=== PATIENT | male | born 1990 | race Caucasian/White ===

== ENCOUNTER 2016-10-09 13:35 | Inpatient (IN) | payer OTHER ==
[~2016-10-09] VITALS: Ht 177.8 cm; Wt 88.3 kg
--- NOTE | ~2016-10-09 | INDIVTXPLN ---
"PATIENT: CHAPIN EVANS | | [facility] UNIT #: [id number] | [address] AGE/SEX: 26 M : 89 | [address] | [place] [phone] ADMIT/REG DATE: 10/09/16 | ROOM: [facility] LOC: ADTC | ADTC | Individualized Treatment Plan Date: 10/31/16 Problem Statement/Issue Identified: Client needs to identify relapse warning signs and develop a plan to deal with them as they arise. Goal: Client will learn how to identify relapse triggers and make a plan of how to avoid them. Objectives/Activities to achieve goal: 1. Client is to complete the Recovery Maintenance packet and process it with counselor. Due Date:11/07/16 Complete: Incomplete: Client signature Date Counselor signature Date Outcome/Measurement of Progress Towards Goal: Counselor's signature Date "
--- NOTE | ~2016-10-09 | INDIVTXPLN ---
"PATIENT: CHAPIN EVANS | | [facility] UNIT #: [id number] | [address] AGE/SEX: 26 M : 89 | [address] | [place] [address] ADMIT/REG DATE: 10/09/16 | ROOM: [facility] LOC: ADTC | ADTC | Individualized Treatment Plan Date: 10/10/16 Problem Statement/Issue Identified: Client continues to use alcohol &/or drugs despite ongoing negative consequences. Goal: Client will learn how to identify negative consequences of his addiction, attend AA/NA meetings and meet men in recovery. Objectives/Activities to achieve goal: 1. Client is to complete the How to Get Started packet, process it with counselor and selected pages in group. Due Date:10/16/16 Complete: Incomplete: 2. Client is to complete Step 1, process it with counselor and selected pages in group. Due Date:10/18/16 Complete: Incomplete: 3. Client is to attend AA/NA meetings, ask for and get at least 5 names and numbers of men in recovery and share that list with counselor. Due Date:Ongoing Complete: Incomplete: Client signature Date Counselor signature Date Outcome/Measurement of Progress Towards Goal: Counselor's signature Date "
--- NOTE | ~2016-10-09 | CLPRLASSUM ---
PATIENT: CHAPIN EVANS | | [facility] UNIT #: [id number] | [address] AGE/SEX: 26 M : 89 | [address] | [place] [phone] ADMIT/REG DATE: 10/09/16 | ROOM: [facility] LOC: ADTC | ADTC | Client Problem List/Assessment Summary Date: 10/10/16 Problems identified by the client: Client reported he went to his son's mom's house high and was arrested. Something in him told him it's time to get help on his own, not for the courts or anyone else, but so he can be a better person and father. Problems identified by significant others: Same Client's Strengths: Client identified his strengths as: He is intelligent, resilient, tenascious, and has intuition. Problem List: Code: T Client continues to use alcohol &/or drugs despite ongoing negative consequences. Code: T Client does not "reach-out to others for help" and instead resumes using alcohol &/or drugs. Code: T Client has learned to deny or stuff feelings; needs to learn to identify and process feelings with safe people to acquire the necessary skills to maintain terminologist sobriety. Code: T Client needs to identify relapse warning signs and develop a plan to deal with them as they arise. Code Ayala: T: to be addressed during course of treatment O: problem noted, expected to resolve itself with abstinence--specific tx plan not required R: problem noted, will be referred upon discharge PRIMARY COUNSELOR: LATRICE Mejia
--- NOTE | ~2016-10-09 | RESCARESUM ---
"PATIENT: CHAPIN EVANS | | [facility] UNIT #: [id number] | [address] AGE/SEX: 26 M : 89 | [address] | [place] [address] ADMIT/REG DATE: 10/09/16 | ROOM: [facility] LOC: ADTC | ADTC | Summary of Residential Care Primary Counselor: Mary POLLARD Date of Admission: 10/09/16 Date of Discharge: 11/08/16 Referral Source: 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 Discharge Diagnosis: Same Goals Achieved: Chapin was able to identify negative consequences of his addiction, and gain insight to the disease concept. He completed Step 1, and worked on learning to make changes and stop playing a con game. 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 Family Issues Addressed: The only issues addressed were those with he parents and their own addiction. He wrote and processed feelings letters to them, and we addressed the relationship between Chapin and his son's Mom. He also wrote feelings letters to his son and his Mom. Y Individual Therapy Y Group Therapy Y Educational Series on Substance Abuse N Parents/Significant Others Attended Family Program N Acute Medical Problems During the Course of Treatment N Transferred to Hospital During the Course of Treatment Y Accepting of Substance Abuse Problem N Non-accepting of Substance Abuse Problem N Required Psychological or Psychiatric Consultation During the Course of Treatment Completed AA Step # 1 During This Level of Care Significant Incidences During Treatment: None Reason For Discharge: Y Completed Residential [place] Goals and Ready For Next Level of Care PATIENT: CHAPIN EVANS | | [facility] UNIT #: [id number] | [address] AGE/SEX: 26 M : 89 | [address] | [place] [address] ADMIT/REG DATE: 10/09/16 | ROOM: [facility] LOC: ADTC | [facility] | Summary of Residential Care N Left Tx Against Medical Advice/Treatment Goals Not Complete N Completed Residential Tx Goals But Refusing Continuing Care Recommendations N Discharged Due to Noncompliance/Treatment Goals not Completed N Discharged Earlier Than Planned Due to: Continuing Care Plan/Recommendations: N Intensive Partial Care Y Sponsor N Partial Care Y AA Meetings/NA Meetings N Outpatient N Co-dependency Services N Therapeutic Community Y [address] [facility] [address] [facility] N Mental Health Therapy N Marriage Counseling N Other Specific Continuing Care Plan: It is recommended that Chapin go take care of his legal issue, then get into the [facility] as soon as possible. 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 PRIMARY COUNSELOR: LATRICE Mejia"
--- NOTE | ~2016-10-09 | TXPLANREV ---
"PATIENT: CHAPIN EVANS | | [facility] UNIT #: [id number] | [address] AGE/SEX: 26 M : 89 | [address] | [place] [phone] ADMIT/REG DATE: 10/09/16 | [facility] | Treatment Plan/Staffing Review Date: 10/17/16 Treatment plan was reviewed and determined appropriate as written: Yes Treatment plan was reviewed and the following changes/addition/deletions are necessary: Client is to continue working on treatment plan assignments. He is finishing up with Step 1 and will begin working on feelings letters. Discharge plans were reviewed and determined appropriate as previously documented: No Discharge plans were reviewed and determined to be as follows: Client has been accepted into the [facility], but he will need to come up with a deposit to keep his bed. He will also be recommended to do aftercare here in Outpatient treatment, as well as to get and call a sponsor on a regular basis and attend AA/NA meetings. Other pertinent issues discussed during this staffing review include: Client was confronted for going into the front office secretary's office and took candy from her candy dish. Staff Present: Corinne Reynoso PRIMARY COUNSELOR: LATRICE Mejia Client Signature Counselor Signature Date Time "
--- NOTE | ~2016-10-09 | TXPLANREV ---
"PATIENT: CHAPIN EVANS | | [facility] UNIT #: [id number] | [address] AGE/SEX: 26 M : 89 | [address] | [place] [phone] ADMIT/REG DATE: 10/09/16 | [facility] | Treatment Plan/Staffing Review Date: 10/24/16 Treatment plan was reviewed and determined appropriate as written: Yes Treatment plan was reviewed and the following changes/addition/deletions are necessary: Client is to continue working on treatment plan assignments. He is working on criminogenic packets. Discharge plans were reviewed and determined appropriate as previously documented: No Discharge plans were reviewed and determined to be as follows: [facility] We have put in applications and/or referrals to various places, including [facility], [facility] and [facility]. He will also be recommended to attend AA/NA meetings, as well as to get and call a sponsor on a regular basis. Other pertinent issues discussed during this staffing review include: None at this time. Staff Present: Corinne Reynoso PRIMARY COUNSELOR: LATRICE Mejia Client Signature Counselor Signature Date Time "
--- NOTE | ~2016-10-09 | TXPLANREV ---
"PATIENT: CHAPIN EVANS | | [facility] UNIT #: [id number] | [address] AGE/SEX: 26 M : 89 | [address] | [place] [phone] ADMIT/REG DATE: 10/09/16 | [facility] | Treatment Plan/Staffing Review Date: 11/07/16 Treatment plan was reviewed and determined appropriate as written: Yes Treatment plan was reviewed and the following changes/addition/deletions are necessary: Client is to continue working on treatment plan assignments. He is working on recovery maintenance. Discharge plans were reviewed and determined appropriate as previously documented: No Discharge plans were reviewed and determined to be as follows: Client has a bed at the [facility], but has to take care of an outstanding warrant before he can get in there. 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 Other pertinent issues discussed during this staffing review include: None at this time. Staff Present: Kalpana Reynoso PRIMARY COUNSELOR: LATRICE Mejia Client Signature Counselor Signature Date Time "
--- NOTE | ~2016-10-09 | INDIVTXPLN ---
"PATIENT: CHAPIN EVANS | | [facility] UNIT #: [id number] | [address] AGE/SEX: 26 M : 89 | [address] | [place] [phone] ADMIT/REG DATE: 10/09/16 | ROOM: [facility] LOC: ADTC | ADTC | Individualized Treatment Plan Date: 10/17/16 Problem Statement/Issue Identified: Client has learned to deny or stuff feelings; needs to learn to identify and process feelings in a clean/sober manner. Goal: Client will learn how to identify feelings and express them in a healthy, clean/sober manner. Objectives/Activities to achieve goal: 1. Client is to complete the Feelings packet, and process it with counselor. Due Date:10/24/16 Complete: Incomplete: 2. Client is to write feelings letters, process them with counselor and in family group, when able. Due Date:10/23/16 Complete: Incomplete: Client signature Date Counselor signature Date Outcome/Measurement of Progress Towards Goal: Counselor's signature Date "
--- NOTE | ~2016-10-09 | TXPLANREV ---
"PATIENT: CHAPIN EVANS | | [facility] UNIT #: [id number] | [address] AGE/SEX: 26 M : 89 | [address] | [place] [phone] ADMIT/REG DATE: 10/09/16 | [facility] | Treatment Plan/Staffing Review Date: 10/31/16 Treatment plan was reviewed and determined appropriate as written: Yes Treatment plan was reviewed and the following changes/addition/deletions are necessary: Client is to continue working on treatment plan assignments. He is finishing up with feelings letters and will begin working on relapse prevention. Discharge plans were reviewed and determined appropriate as previously documented: No Discharge plans were reviewed and determined to be as follows: Client has an outstanding warrant that we are working on getting lifted. If this is done, he has been accepted into the [facility]. 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 Other pertinent issues discussed during this staffing review include: None at this time. Staff Present: Corinne Reynoso PRIMARY COUNSELOR: Mary Drake Client Signature Counselor Signature Date Time "
--- NOTE | 2016-10-09 15:20 | NUR ---
ADMISSION NOTE Rights/Responsibilities: Copy given and explained to client. Signed and accepted by client. Client oriented to physical lay out of the ADTC unit, given Big Book and admission packet. A Dean was assigned. Chris Client is a 26yr old single male. Brought to tx by [facility] staff where he has been for the past 2 days. Lives in [place], [place]. DOC, Meth, last used 10/05/16, 1/2 gram daily. No allergies, Nurse has meds. No family. Was searched no contraband found. Initial paperwork given and guidelines gone over. Doctor has been notified.
--- NOTE | 2016-10-09 22:19 | NUR ---
Tech note : Client went to an onsite NA meeting. He was checked into his room, seen by gavin LEW and gave his first intro.
--- NOTE | 2016-10-10 04:13 | NUR ---
Bed note: Client was in bed with eyes closed and no distress at all bed checks.
--- NOTE | 2016-10-10 11:30 | NUR ---
GROUP 1.5 HRS. 1:9 Clients was oriented to purpose and rules. Discussion included discharge plans and the importance of aftercare plan. Peer processed HOW TO GET STARTED IN TREATMENT assignment. This client shared that he was previously in treatment in 2013.
--- NOTE | 2016-10-10 12:55 | NUR ---
Tech Note: Client participated in light stretching for morning exercise and went for an outdoor walk in the afternoon. Client stated that he is working on, "How to Get Started in Treatment."
--- NOTE | 2016-10-10 13:32 | NUR ---
Education One Hour: Client heard a presentation on Sexually Transmitted Disease.
--- NOTE | 2016-10-10 16:12 | NUR ---
Relapse Prevention Education, 1.0 hours, Client attended and actively participated in relapse prevention education which focused on a Relapse Prevention Quiz and discussion over the answers.
--- NOTE | 2016-10-10 16:16 | NUR ---
INITIAL SESSION 1 HR: Clt was oriented to tx plans, schedules and what to expect. He stated he was previously here, so knows what to expect. We discussed what brought him back, and he advised this time he's on his own, no drug court, not other legal problems, just him wanting to be able to see his child. AT this time, he cannot. Clt is to begin working on treatment plan assignments.
--- NOTE | 2016-10-10 20:10 | NUR ---
educatio note: 1 hour lecture by counselor on" what valdovinos are you willing to pay"
--- NOTE | 2016-10-10 22:24 | NUR ---
Tech note: Client attended the Alumni meeting, participated in guided meditation and attended an onsite AA meeting. SE; Meeting with counselor
--- NOTE | 2016-10-11 04:54 | NUR ---
Bed note: Client was in bed with eyes closed and motionless at all bed checks.
--- NOTE | 2016-10-11 09:02 | HP ---
ADMIT: 10/09/2016 RM/LOC: [facility] MR#: [id number] [facility] [address] [place], [place] [address] CHAPIN [place]ANS [address] [place] [address] History and Physical SEX: M AGE: 26 : 1990 DATE OF SERVICE: This is for his admission to the residential care program with [facility]. CHIEF COMPLAINT: Drug and alcohol problem with recent relapse on meth and alcohol. CLINICAL HISTORY: The patient is a 26-year-old, white male from [place], [place], admitted to the residential care program at the [facility] after having spent the last 3 days at [facility] for detox. The patient was admitted to [facility] on 10/07/2016. He went there voluntarily on his own after he got arrested for trespassing and released from skilled nursing. He had went to his son's mother's home and was high and somewhat agitated. She called the police because she had a protection order, and he was arrested for trespassing. As soon as he was released from skilled nursing, he decided it was time to come back to treatment and tried to get himself clean and sober so that he can move on with his life. He notes he has gone through treatment on one previous occasions. Previously, he was admitted to the residential treatment program here at the [facility] in January of 2014 being in treatment from 02/04/2014 through 03/03/2014. After he completed treatment at that time, he was sober for about 6 months while living at a residential house. He then relapsed while he was at the residential house, relapsing on methamphetamine and alcohol. He was then kicked out of the residential house and continued to use. Has been using essentially on a daily basis except when he is confined to skilled nursing or skilled nursing. The patient notes that he has been in skilled nursing on 2 occasions, spent a total of 16 months in 2014 and 2015. This occurred after he got out of the residential house and was using again. He ended up being charged with several felonies and ended up going to skilled nursing. He got out on probation, but then had further legal charges and his probation was revoked. He has been out of skilled nursing since November of 2015 and for the past 11 months, he has been using on a regular basis. He has noted that his drug of choice is methamphetamine. He first started using meth at around age 21. He has been using essentially on a daily basis either smoking it or shooting it IV. IV is his preferred route of administration. Typically, he has been doing a half to 1 g a day on a regular basis. His second drug of choice is currently alcohol, although that he notes when he is using meth, he has no desire to drink or use pot. Prior to starting meth at age 21, he had been a daily drinker, drinking heavily. He had started drinking at around age 12 or 13, but by age 16 was binge drinking regularly. By age 18, he was drinking daily, drinking up to the point of intoxication or passing out. Once he started using meth at age 21, his alcohol use has dropped off dramatically. He notes the same for marijuana. At age 14, he started using pot. His heaviest use was from age 18 to 21. Before he started using meth, he was smoking approximately an 8th of an ounce of pot per day. He notes now he will use pot occasionally, but if he has any money he is going to spend it on meth rather than wasting it on alcohol or other drugs. He notes he dabbled with cocaine for a little while at age 21, but prefers meth over coke. He has also tried mushrooms on one occasion. He has abused prescription pills on occasion. He notes in skilled nursing, it was easy to get pain pills and benzodiazepines, and so he is abusing those intermittently while he was in ADMIT: 10/09/2016 RM/LOC: [facility] MR#: [id number] [facility] [address] [place] [id number] CHAPIN EVANS [address] [place] [address] History and Physical SEX: M AGE: 26 : 1990 skilled nursing from 2014 to 2015. He notes his current drug of choice is methamphetamine, and his ongoing methamphetamine use that has led to his escalating legal problems. He comes to treatment voluntarily at this time. He notes when he came to treatment back in 2013, it was because of his legal problems and was portion of [address] agreement. He notes he was not motivated to get clean at that time. He notes his attitude has changed significantly over the last 3 years. Admitted for treatment of his methamphetamine use disorder, cannabis use disorder, and alcohol use disorder. PAST MEDICAL HISTORY: The patient notes he has had numerous hospitalizations over the last 12 years because of his type 1 diabetes. The patient was diagnosed with type 1 diabetes at age 14. He has had to be hospitalized with ketoacidosis on several occasions when he was younger. More recently, he has had brief hospitalizations for hypoglycemia. PREVIOUS OPERATIONS: None. CURRENT MEDICATIONS: He is on Lantus 40 units at bedtime. He takes Humalog prior to each meal, usually adjusts his dose based on his blood sugar and what he plans on eating food ranging anywhere from 10 to 25 units of Humalog prior to meals. He is on no other medications other than his insulin. ALLERGIES: NO KNOWN ALLERGIES. MEDICAL ILLNESSES: Despite his lifestyle, his only chronic health problem appears to be his type 1 diabetes. He notes previous testing for HIV and hep C have been negative. He is at high risk for blood-borne pathogens due to his long-term IV drug use having been an IV user now for over 5 years. REVIEW OF SYSTEMS: A 12-point review of systems is otherwise negative with no other significant cardiac, pulmonary, GI, , musculoskeletal, or neurological problems noted. Do note he is a smoker, typically smoking a half pack a day. SOCIAL HISTORY: The patient is single. Currently, has been living with his mother in [place]. He has one son, age 5. He has a protection order against him by his son's mother. The patient notes he completed the 12th grade, but did not have enough credits to graduate. Has never gotten his GED. He has never been able to hold a job for very long. Has done multiple jobs. As noted, does have significant legal history with previous 16-month skilled nursing stay. FAMILY HISTORY: He notes his parents when he was young. He is the oldest of the 4 children in the family. He has 2 sisters and 1 brother. His father is an alcoholic and a drug addict. His mother is addicted to pain prescription, pain pills. He notes that his brother is also an alcoholic and an addict. He has extensive history of chemical dependency throughout his family. PHYSICAL EXAMINATION: VITAL SIGNS: His temperature is 96, pulse is 80, ADMIT: 10/09/2016 RM/LOC: [facility] MR#: [id number] [id number] [place] [id number] [place] [address] History and Physical SEX: M AGE: 26 : 1990 respirations 20, blood pressure 153/93. Height 5 feet 10 inches, weight is 193 pounds. GENERAL: The patient is a 26-year-old male, who appears his stated age. He is in no acute distress. Oriented x3. HEENT: Unremarkable. Ears are clear. Nose and throat noninflamed. Oropharynx normal. NECK: Supple. No adenopathy. Thyroid not enlarged. LUNGS: Today are noted to be clear. HEART: Has regular rhythm without murmur. ABDOMEN: Soft, nontender. No masses. No organomegaly. Bowel sounds are normoactive. He has no CVA or suprapubic tenderness. GENITALIA: Normal male. Bilaterally descended testes. No hernias. EXTREMITIES: Normal to gross exam. No peripheral edema. No clubbing or cyanosis. No evidence of diabetic neuropathy. NEUROLOGICAL: He is intact with no focal deficit. Balance and gait are normal. Cranial nerves II through XII are grossly intact. MENTAL STATUS EXAMINATION: He is pleasant, cooperative. Affect is appropriate. No bizarre ideation. No delusions or hallucinations. No significant depressive symptoms. He is oriented x3. He appears to be of average intelligence. His insight is limited. Judgment is poor. ASSESSMENT AT THE TIME OF ADMISSION: 1. Methamphetamine/stimulant use disorder, severe. 2. Cannabis use disorder, severe. 3. Alcohol use disorder, severe. 4. Type 1 diabetes, insulin dependent. 5. Tobacco use disorder. PLAN: Plan is to admit the patient to the residential care program with tentative discharge date of 11/06/2016. Upon completion of treatment, the patient would like to go to a residential house. He recognizes the importance of a structured supportive environment to help maintain his long-term sobriety. While in the treatment program, we will aggressively try to manage his type 1 diabetes. We will have a diabetic nurse educator see him as well as the dietitian. Monitor his blood sugar 4 times a day, and we will do carb counting as well as sliding scale insulin. The patient is well educated on his diabetes, and will manage his sliding scale and carb counting. Just needs to have some refresher on this by our diabetic nurse educator and dietitian. Nilay Patiño MD/ howard JOB #: [id number] CC: Nilay Patiño, Attending Physician NO FAMILY PHYSICIAN, Family Physician
--- NOTE | 2016-10-11 10:34 | NUR ---
Tech notes: Client is working on Getting started
--- NOTE | 2016-10-11 11:30 | NUR ---
GROUP 1.5 HRS. 1:11 Discussion included the need for appropriate boundaries on the unit and working towards recovery/new behaviors, not addiction/old behaviors. Clients also discussed the effects on addiction as peers had parents that were addicts and then became the parent who addiction effected their own kids.
--- NOTE | 2016-10-11 12:34 | NUR ---
Education note: Client had education by [facility]
--- NOTE | 2016-10-11 15:26 | NUR ---
Met with patient to review diabetic diet. He has had diabetes since he was 14. Pt appears motivated. Provided written materials and a meal plan. Verbalizes understanding.
--- NOTE | 2016-10-11 17:23 | NUR ---
SPIRITUAL EDUCATION 1 HR. Todays topics were orienting newcomers, and taking a look at Keven Mcdonnell's 5 SECRETS TO SUCCESS which include a look at the miracles of the human body as blessings.
--- NOTE | 2016-10-11 20:54 | NUR ---
education: 1 hour video on unresolved anger and group discussion with counselor
--- NOTE | 2016-10-11 22:01 | NUR ---
Tech note: Client worked on beaded project and attended an onsite NA meeting. SE; NA meeting
--- NOTE | 2016-10-12 04:01 | NUR ---
Bed note: Client was in bed with eyes closed and no distress at all bed checks.
--- NOTE | 2016-10-12 08:19 | NUR ---
TRAUMA NOTE: Clt identified no trauma in his life.
--- NOTE | 2016-10-12 10:18 | NUR ---
Tech Note: Client participated in Spiritual Enrichment. Client stated that he is working on Step One.
--- NOTE | 2016-10-12 12:52 | NUR ---
Group 1.5 Hr Ratio 1:10/Topics today were a relapse prevention, a feelings letter, a getting started and two step one's. Client shared how he could relate to neddles being a trigger to use as he has used a needle with drugs and is diabetic and uses needles for that and it can be difficult.
--- NOTE | 2016-10-12 13:33 | NUR ---
Education 1 Hour: Client heard a presentation from a member of the recovery community who shared his experience, strength and hope.
--- NOTE | 2016-10-12 16:36 | NUR ---
step education 1 hr/ Focus was on step 2, handed out some questions they completed on paper and then opened it up for discussion. This client participated. He shared about his higher power.
--- NOTE | 2016-10-12 23:24 | NUR ---
Tech Note: Client attended Guided Meditation and A.A.Meeting. SE: Step Education
--- NOTE | 2016-10-13 04:22 | NUR ---
Eduction: 1 Hour. Client attended "Unresolved Anger" video & discussion presented by staff.
--- NOTE | 2016-10-13 11:59 | NUR ---
Group 1.5 Hr Ratio 1:9/Topics today were two getting started packets, forgiveness and dealing with bad childhoods. Client shared how he could relate adn confronted a peers for not being congruent with his assignment.
--- NOTE | 2016-10-13 13:00 | NUR ---
PEER REVIEWS 1.5 HRS: Clt participated in peer review process and was able to give open and honest feedback to those receiving a review.
--- NOTE | 2016-10-13 16:06 | NUR ---
Tech Note: Client participated in group walk for exercise and watched "Recovery Issues Part 3" for afternoon video. Client is working on "Con Game".
--- NOTE | 2016-10-13 22:41 | NUR ---
TECH NOTE: Client participated in reading guidelines and watched tv/movies. SE: meeting with counselor
--- NOTE | 2016-10-14 04:07 | NUR ---
Bed Note: Clt lay motionless in bed with eyes closed showing no distress at all bed checks.
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
--- NOTE | 2016-10-14 15:32 | NUR ---
Medication Note: Client took Maalox for indigestion.
--- NOTE | 2016-10-14 15:58 | NUR ---
Tech Note: Client attended NA Panel and is working on MyGeekDay Game.
--- NOTE | 2016-10-14 16:41 | NUR ---
Tech Note: Client had interview with [facility].
--- NOTE | 2016-10-14 17:18 | NUR ---
Radha Note: On this date some jelly beans were found, on the floor, outside the door of the finance office. I started to ask around if any clients had gone into the office or had visitors that had, and took some jelly beans from Liz's desk. The door had been shut but not locked the entire day. After some discussion, in the rec. room, about looking at camera footage this client came up to radha and said that he had been in the office and took a handful of beans. He has a hole in his pocket and that's how the beans ended up on the floor. Tech admonished client for entering office and taking something that didn't belong to him. Client started to say that he "thought they were there for anyone". Tech told client that his excuse was bull and he knew he shouldn't have done that. Client then said he was very sorry and will never do it again.
--- NOTE | 2016-10-14 20:10 | NUR ---
Tech note: Clt played a game for recreation and attended offsite AA mtg. Watched tv and played cards. SE was NA panel
--- NOTE | 2016-10-15 04:33 | NUR ---
Bed Note: Clt lay motionless in bed with eyes closed showing no distress at all bed checks.
--- NOTE | 2016-10-15 15:41 | NUR ---
Tech Note: Client participated in Big Book Study. Client stated that he is working on, "Con Game" and "Change Plan." Client attended islam.
--- NOTE | 2016-10-15 22:35 | NUR ---
Tech Note: Clt attended AA panel, optional ENVELOPE ADJUSTER mtg and watched movies. SE was AA panel and ENVELOPE ADJUSTER
--- NOTE | 2016-10-16 04:35 | NUR ---
Bed Note: Clt lay motionless in bed with eyes closed showing no distress at all bed checks.
--- NOTE | 2016-10-16 10:13 | NUR ---
Tech notes: Client is working on Change Plan
--- NOTE | 2016-10-16 11:30 | NUR ---
Morning Group, 06/20, 1.5 hours, Client attended and actively participated in group discussion. Client spoke about another client in the group that has been causing problems and not owning up to them. Client stated he has learned from his actions after taking the jelly beans from a staffs office and thinks this client should learn from his mistakes as well and quit offering advice to others if he is not going to take it himself.
--- NOTE | 2016-10-16 13:29 | NUR ---
Education: Client attended education by Emili on Infection prevention.
--- NOTE | 2016-10-16 16:00 | NUR ---
Recovery 101 1 hr/ Clients all were asked to share what they worked on in treatment or past treatments that really helped them and/or their experience with working an AA/NA program of recovery-what went well. This client was attentive. He is here for himself this time, and got sponsor already.
--- NOTE | 2016-10-16 18:09 | NUR ---
Education: 1 Hour. Client attended "Adult Children of Alcoholics" lecture presented by staff.
--- NOTE | 2016-10-16 23:12 | NUR ---
tech note: Client played a game for recreation & attended onsite NA meeting. Client was redirected by tech for tipping in his chair. SE: NA meeting.
--- NOTE | 2016-10-17 04:30 | NUR ---
BED NOTE: Client was in bed, motionless with eyes closed all three bed checks.
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
--- NOTE | 2016-10-17 11:30 | NUR ---
GROUP 1.5 HRS. 1:9 Client participated in orienting new peer to purpose and rules of group. Group discussion included anger and frustration at peer's disrespect and immaturity. The peer was in the other group so clients were redirected at what they can do to be a part of the solution, not part of the problem. This client advised he was very angry due to peers behavior and was encouraged to look at what he can learn about himself.
--- NOTE | 2016-10-17 16:00 | NUR ---
Relapse Prevention, 1.0 hours, Client attended and actively participated in relapse prevention education which focused on internal and external triggers.
--- NOTE | 2016-10-17 16:16 | NUR ---
Tech Note: Client participated in Nutritional Services presentation and is working on Feelings Letters and Change Plan.
--- NOTE | 2016-10-17 22:38 | NUR ---
Education: 1 hour lecture given by counselor on co-dependency
--- NOTE | 2016-10-17 22:46 | NUR ---
Tech note: clients played catchphrase for rec, participated in guided meditation and attended AA meeting SE:education
--- NOTE | 2016-10-18 04:33 | NUR ---
bed note: client was in bed with eyes closed and motionless at all bed checks.
--- NOTE | 2016-10-18 09:49 | NUR ---
Tech notes: Client is working on Fl's and Change plan
--- NOTE | 2016-10-18 11:30 | NUR ---
GROUP 1.5 HRS. 1:12 Clients participated in orienting new peer to purpose and rules of group. Discussion included healthy coping skills to deal with stress and feelings. Peer processed from his step 1 assignment identifying how he betrayed his values in his addiction. This client offered supportive and personal feedback. He also addressed female peer who focuses on her scars.
--- NOTE | 2016-10-18 13:13 | NUR ---
Education note: Client attended educational speaker Jim Sánchez
--- NOTE | 2016-10-18 17:29 | NUR ---
SPIRITUAL EDUCATION 1 HR. Today we used music to invoke discussion, symbolize how it can be either positive spirituality or negative spirituality, and discussed the feelings. We used one song that depicted addiction, one that talked about recovery, and since we are close to Mother's Day, one that depicted addiction in parents and forgiveness.
--- NOTE | 2016-10-18 18:14 | NUR ---
Education: 1 Hour. Client attended "Boudaries" lecture given by staff.
--- NOTE | 2016-10-18 22:48 | NUR ---
Tech Note: Client played a game for rec, and attended The on unit N.A.Meeting. SE: Group
--- NOTE | 2016-10-19 04:28 | NUR ---
Bed Note: Client was in bed with eyes closed and motionless at all bed checks.
--- NOTE | 2016-10-19 11:30 | NUR ---
AM GRP 1.5 HRS, Ratio 1:11/ Clt offered great feedback. He has good insight on things and uses his words wisely, before offering it.
--- NOTE | 2016-10-19 16:43 | NUR ---
FAMILY EDUCATION 3 HRS. Client attended alone and took part in the discussion on the disease concept. All related to progression and consequences of addiction. Client shared feeling sad that male peer was asked to leave treatment as this client saw that he was trying to do better.
--- NOTE | 2016-10-19 18:12 | NUR ---
Education 1HR: Clt watched video called "Predator part 1" by Paulo Joya with staff present.
--- NOTE | 2016-10-19 22:42 | NUR ---
Tech Note: Client took a walk for rec and attended the A.A.Meeting. SE: All Day
--- NOTE | 2016-10-19 23:17 | NUR ---
1:00 pm. Education Note: Client watched video "Inside the Addictive Personality"
--- NOTE | 2016-10-20 04:05 | NUR ---
Bed Note: Client was in bed and motionless at all bed checks.
--- NOTE | 2016-10-20 12:01 | NUR ---
Group 1.5 hr Ratio 1:10/Topics today were Orientation a new client to group rules and goals, a con game packet and a letter to a family member. Client shared how he could relateto what peers were sharing about assignments and issues.
--- NOTE | 2016-10-20 14:40 | NUR ---
PEER REVIEWS 1.5 HRS: Clt participated in peer review process and was able to give open and honest feedback to those receiving a review.
--- NOTE | 2016-10-20 15:35 | NUR ---
Tech Note: Client participated in group walk and watched "Marijuana" by Paulo Joya. Assignment being worked on is Feelings Letters and Change Plan.
--- NOTE | 2016-10-20 23:05 | NUR ---
Tech note: Client played games and watched movies. Client walked to an offsite AA meeting.
--- NOTE | 2016-10-21 03:56 | NUR ---
Bed note: Client was in bed with eyes closed and no distress at all bed checks
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
--- NOTE | 2016-10-21 16:38 | NUR ---
Tech Note: Client went to A.A.Meeting at [address]. Client also went on walk. Client is working on FL's and Change Plan.
--- NOTE | 2016-10-21 21:44 | NUR ---
Tech note: Client's were just starting to grill around 6pm so we did not have rec this evening. Client walked to an offsite AA meeting, played games and watched movies. SE; Morning meeting
--- NOTE | 2016-10-21 22:27 | NUR ---
tech note: client complained of cold symptoms,mucinex was given @ 0029.
--- NOTE | 2016-10-22 04:43 | NUR ---
tech note: client was motionless in no distress at all bed checks.
--- NOTE | 2016-10-22 15:52 | NUR ---
Medication Note: Client took prn ibuprophen for H/A rated at 5.
--- NOTE | 2016-10-22 17:20 | NUR ---
Tech Note: Client participated in Big Book study. Client attended denominational. Client stated that he is working on, "My Change Plan" and writing feelings letters.
--- NOTE | 2016-10-22 23:09 | NUR ---
tech note: Client participated in community clean & attended ELECTRICAL INSTALLER meeting. Client watched tv. SE: ELECTRICAL INSTALLER.
--- NOTE | 2016-10-23 04:22 | NUR ---
tech note: client was motionless in no distress at all bed checks.
--- NOTE | 2016-10-23 11:30 | NUR ---
Experiential Group 1.5 hr/ Clients all participated in looking at family dynamics and feelings through sculpturing and participated with feedback, relating and/or role-playing. This client said he wishes his relationship with his dad was better, dad and mom were miserable together, they were better grandparents then parents.
--- NOTE | 2016-10-23 17:00 | NUR ---
FAMILY EDUCATION 3 HRS. Client attended alone and took part in the discussion on the family roles, codependency and detachment. Client related to some of all of the roles starting with family hero as oldest child.
--- NOTE | 2016-10-23 17:31 | NUR ---
Tech Note: Client went for an outdoor walk in the afternoon. Client stated that he is working on "My Change Plan" and writing feelings letters.
--- NOTE | 2016-10-23 20:44 | NUR ---
Education 1 HR: Clt listened to lecture given by counselor on communication.
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
--- NOTE | 2016-10-23 22:47 | NUR ---
Client had family SE: All Day/Rain
--- NOTE | 2016-10-24 04:55 | NUR ---
Client was in bed and motionless at all bed checks
--- NOTE | 2016-10-24 12:32 | NUR ---
A.M. 1.5 hr group/ Assignments shared were step 1, feelings letters, timeline to music, and a group member asking for help on how to forgive self. This client was attentive and participated by giving feedback and also sharing a feelings letter to his dad to help peer.
--- NOTE | 2016-10-24 15:00 | NUR ---
Tech Note: Client joined group for afternoon walk, listened to speaker from [facility] and is working on Feelings Letters, Con Game and Change Plan.
--- NOTE | 2016-10-24 15:42 | NUR ---
Tech Note: Client attended Relapse Prevention education with Mary.
--- NOTE | 2016-10-24 19:49 | NUR ---
Education: 1 hour lecture on STD/AID/HIV gieula by [facility].
--- NOTE | 2016-10-24 22:15 | NUR ---
Tech note : Client worked on [employer] and get well cards. Client participated in guided meditation and went to an onsite AA meeting. He had a hard time feeling his feelings today, talked about leaving. He recieved support from his peers and staff.
--- NOTE | 2016-10-25 04:12 | NUR ---
Bed note: Client was in bed with eyes closed and no distress at all bed checks
--- NOTE | 2016-10-25 09:00 | NUR ---
IS 1 HR: Clmatias was asked about last nights emails about wanting to leave, and he stated it was "all about the da feelings letters." He stated he doesn't know or want to feel any of those feelings surrounding his son, so was asked what feelings they are. He stated he thinks it's all except glad. He was asked to share about all of them and was asked how he feels right now, and it was mad, and he wanted to go use, as that always takes the feelings away. He also stated he is worried aobut where he's going after tx, so he was given the assignment to write his addiction a goodbye/vent letter to get rid of his anger, then he can only worry about things at 4:00. Any other time of the day, he has to tell himself it's not 4:00 and he can't worry about it. He asked about "giving it to God" which he struggles w/ so we discussed how giving the worry and fear and all other negative feelings to God can help him feel better. He reported that made more sense.
--- NOTE | 2016-10-25 11:08 | NUR ---
Tech Note: Client is working on Feelings Letters and Change Plan.
--- NOTE | 2016-10-25 12:13 | NUR ---
AM GROUP 13:11.5 HR: Client and peers heard multiple clients process assignments and issues. Most did offer feedback, asked clarifying questions and shared from their own experiences. This client was active throughout with clarifying questions, personal sharing and encouragement. Client did especially relate to another who talked about all the false promises he has made to his kids, but never followed through with. This client said his mother was like that as he was growing up and still is even now.
--- NOTE | 2016-10-25 13:16 | NUR ---
Tech Note: Client walked in the hallways for afternoon exercise.
--- NOTE | 2016-10-25 13:20 | NUR ---
Education One Hour: Client heard from members of the recovery community, who shared their experience, strength and hope.
--- NOTE | 2016-10-25 17:23 | NUR ---
SPIRITUAL EDUCATION 1 HR. Topics today were orienting newcomers and then broke into groups and did presentations on their sections from [employer].
--- NOTE | 2016-10-25 18:43 | NUR ---
Education: 1 hour lecture given by counselor on "Disease concept".
--- NOTE | 2016-10-25 22:11 | NUR ---
Tech note: Client played catch phrase for rec and attended an onsite NA meeting. SE: NA
--- NOTE | 2016-10-26 04:58 | NUR ---
Bed note: Client was in bed with eyes closed and no distress at all bed checks.
--- NOTE | 2016-10-26 10:33 | NUR ---
Tech Note; Client participated in light stretching for morning exercise. Client stated that he is working on writing feelings letters.
--- NOTE | 2016-10-26 12:41 | NUR ---
Group 1.5 Hr Ratio 1:11/Topics today were feelings letters, a good bye letter to addiction and a couple getting started packets. Client shared a good bye letter to his addiction and did a very good job.
--- NOTE | 2016-10-26 16:02 | NUR ---
Step Education 1 hr/Focus was on step 4 making a searching and fearless moral inventory of ourselves. Handed out some questions each person answered on paper and then we discussed. This person participated.
--- NOTE | 2016-10-26 16:17 | NUR ---
Education 1 Hour: Client heard from two members of the recovery community, who shared their experience strength and hope.
--- NOTE | 2016-10-26 18:09 | NUR ---
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
--- NOTE | 2016-10-26 20:22 | NUR ---
Education: 1 Hour. Client attended Jason Hughes "Unhealthy Families" video.
--- NOTE | 2016-10-26 22:44 | NUR ---
Client went on a walk for rec, participated in guided meditation, and attended the on unit A.A.Meeting. SE: Group
--- NOTE | 2016-10-27 05:32 | NUR ---
tech note: client was motionless in no distress at all bed checks.
--- NOTE | 2016-10-27 07:15 | NUR ---
IS 1 HR: Krystal shared his anger letter to his addiction. He did a great job on it, and stated it let go of some of his anger. He is ready to start on his feelings letter to his son and son's Mom. Krystal asked that the public defenders office be called to verify he has court on the , but when called, they stated it was today at 9:00 and since he didn't come they issued a warrant, however, if we send them a letter stating he was in tx, they will get the warrant lifted. Said letter was typed up and faxed to Kristian Crump, public works manager. Krystal has an appt with the for a screening on 10/30 @ 1:00 and has a bed on 11/07.
--- NOTE | 2016-10-27 11:57 | NUR ---
Group 1.5 Hr Ratio 1:11/Topics today were two Getting started packets, feelings letters and a letter to self. Client shared positive feedback as to how he relate to what peers were sharing from assignments adn issues.
--- NOTE | 2016-10-27 14:35 | NUR ---
Tech Note: Client joined our group walk for exercise. Watched video titled "Sound of Silence" and is working on Feelings Letters.
--- NOTE | 2016-10-27 15:43 | NUR ---
PEER REVIEWS 1.25 HRS: Clt participated in peer reviews and took a risk to give open and honest feedback to those receiving a review.
--- NOTE | 2016-10-27 20:20 | NUR ---
TECH NOTE: Client participated in reading of guidelines, watched TV/movies SE: Feeling Letters
--- NOTE | 2016-10-28 04:30 | NUR ---
BED NOTE: Client was in bed, motionless with eyes closed all bed checks.
--- NOTE | 2016-10-28 16:12 | NUR ---
Tech Note: Client is working on Feelings Letters.
--- NOTE | 2016-10-28 20:15 | NUR ---
Tech note: Clt played a game for recreation and attended offsite AA mtg. Clt played cards and watched tv. SE was NA panel
--- NOTE | 2016-10-29 04:24 | NUR ---
BED NOTE: Client was in bed motionless with eyes closed all three bed checks.
--- NOTE | 2016-10-29 15:37 | NUR ---
Tech Note: Client stated that he is working on writing feelings letters. Client attended rastafarian.
--- NOTE | 2016-10-29 22:51 | NUR ---
Tech Note: Client attended the A.A.Panel with Jason Pavon Client also attended the TRANSLITERATOR meeting SE: All Day
--- NOTE | 2016-10-30 04:35 | NUR ---
Client was laying in bed and motionless at all bed checks.
--- NOTE | 2016-10-30 09:39 | NUR ---
Tech note: Client is working on Fl's and mtg with Dominik
--- NOTE | 2016-10-30 12:52 | NUR ---
Education Note: Clients attended speaker for education Kit J.
--- NOTE | 2016-10-30 15:55 | NUR ---
PEER REVIEWS 1.25 HRS: Clt participated in peer reviews and took a risk to give open and honest feedback to those receiving a review.
--- NOTE | 2016-10-30 16:00 | NUR ---
RECOVERY 101 1 hr/ Clients discussed what they are learning from attending the 12 step recovery meetings about fundamentals of recovery, how to work a program such as: get and use a sponsor, work the steps, read C.A.L., HOW/honesty, openminded &willing, service work, HP/spirituality, opening up, slogans, serenity prayer, home group/meetings, etc. Clients shared and got into story telling at times. They learned 15% is addiction and 85% is the living problem so this is why keep going to meetings and working the program is vital.
--- NOTE | 2016-10-30 18:17 | NUR ---
Education: 1 Hour. Client attended "Feelings" lecture presented by staff.
--- NOTE | 2016-10-30 22:39 | NUR ---
tech note: Client played Catch Phrase for recreation & had an attitude with the tech when told him he needed to stop tipping in the chair-he had minimal participation during recreation. Client attended onsite NA meeting. Client was upset and made comments to tech that he didn't want to be here. Later in the evening he stated to tech he was feeling better but was vague on details. Client was seen with his arm around a female peer ST on the back patio. SE: the NA meeting & not leaving treatment.
--- NOTE | 2016-10-31 04:44 | NUR ---
tech note: client was motionless in no distress at all bed checks.
--- NOTE | 2016-10-31 12:59 | NUR ---
GROUP 1.5 HRS. 1:11 Group discussion included cravings and grief of old lifestyle as well as feelings letters/effects on kids and betraying values. This client processed his feelings letter to his son and owned how his addiction had kept him away from his son.
--- NOTE | 2016-10-31 15:46 | NUR ---
Relapse Prevention, 1.0 hours, Client attended and actively participated in relapse prevention education which focused on compulsive behaviors and relapse.
--- NOTE | 2016-10-31 15:57 | NUR ---
Tech Note: Client watched Part 2 of Predator by Paulo Joya and had Relapse Prevention for 3:00 education. Assignment being worked on: Feelings Letters.
--- NOTE | 2016-10-31 16:18 | NUR ---
Education Note: Client attended Relapse Prevention presented by counselor Corinne.
--- NOTE | 2016-10-31 20:15 | NUR ---
Education: 1 hour lecture given by counselor on relapse.
--- NOTE | 2016-10-31 20:20 | NUR ---
tech note: Client went for walk for rec, participated in guided meditation and attended AA meeting
--- NOTE | 2016-10-31 23:20 | NUR ---
Tech Note: Client went on a walk for rec and attended the on unit A.A.Meeting. SE: Group
--- NOTE | 2016-11-01 04:52 | NUR ---
Bed note: client was in bed with eyes closed and no distress at all bed checks.
--- NOTE | 2016-11-01 10:17 | NUR ---
Tech notes: Client is working on BB
--- NOTE | 2016-11-01 11:30 | NUR ---
BIG GROUP 4:21 Group was brought together to discuss issues of old behaviors, treatment relationships and other violations of guidlines that are being kept secret. All were encouraged to look at the difficulty they have confronting with assertiveness, rather than passive/aggressive. This client shared what he had heard about "snitch" mentality being old behavior.
--- NOTE | 2016-11-01 13:42 | NUR ---
Educational note: Client watched a video for education.
--- NOTE | 2016-11-01 16:21 | NUR ---
IS 1 HR: Clt processed his feelings letters to his son, son's mom and brother. He did a great job on them, showing little emotion, but did choke up on his son and brothers. We discussed the relationship, or lack of, between him and his son's mom and how he has lots of unanswered questions, and heard it's about acceptance and the fact that he may never know. He stated he is learning to be ok w/ that, but he doesn't like it.
--- NOTE | 2016-11-01 17:18 | NUR ---
SPIRITUaL EDUCATION 1 HR. Clients were oriented to the group and learned difference between spirituality and anabaptist. We addressed GRATITUDE today with discussion, worksheet and activity.
--- NOTE | 2016-11-01 18:19 | NUR ---
Education: 1 Hour. Client attended "Self Esteem"lecture presented by staff.
--- NOTE | 2016-11-01 23:04 | NUR ---
tech note: client went on a walk for recreation & attended the onsite NA meeting. SE: walk,group.
--- NOTE | 2016-11-02 05:07 | NUR ---
Bed Note: Clt lay motionless in bed with eyes closed showing no distress at all bed checks.
--- NOTE | 2016-11-02 11:06 | NUR ---
Tech Note: Client participated in Spiritual Enrichment. Client stated that he is working on, "Recovery Maintenance."
--- NOTE | 2016-11-02 11:39 | NUR ---
Group 1.5 Hr Ratio 1:10/Topics today were two step ones, two Gettings started packets andtwo feelings letters. Client shared a feelings letter to his little brother and it was ok but lacked feelings.
--- NOTE | 2016-11-02 17:13 | NUR ---
step education 1 hr/ Focus was on step 6 and looking at character defects and letting God remove them. Each person took some time looking at a list of character defects and wrote out answers to a set of questions and then shared and discussed. This client participated. He shared it is very hard for him to tell on others but said he can tell the person.
--- NOTE | 2016-11-02 19:13 | NUR ---
Educationn1 Hour: Client heard a presentation on marijuana.
--- NOTE | 2016-11-02 22:05 | NUR ---
Education 1 HR: Clt watched video by Ellen "Emeli Rosales" with staff present.
--- NOTE | 2016-11-02 22:25 | NUR ---
Tech Note: Clt walked for recreation, attended GM and onsite AA mtg. Clt was late for clt mtg. SE was hug from former peer.
--- NOTE | 2016-11-03 04:42 | NUR ---
Bed Note: Clt lay motionless in bed with eyes closed showing no distress at all bed checks.
--- NOTE | 2016-11-03 11:30 | NUR ---
GROUP 1.5 HRS. 1:11 Group discussion included step 1 assignment to identify how betrayed values (pg. 10) and effects on others (pg. 11) as well as feelings letters and sharing damage to relationships. This client was active and offered appropriate and insightful feedback.
--- NOTE | 2016-11-03 15:55 | NUR ---
PEER REVIEWS 1.25 HRS: Clt participated in peer reviews and took a risk to give open and honest feedback to those receiving a review.
--- NOTE | 2016-11-03 16:05 | NUR ---
Tech Note: Client listened to speaker Abelardo Vinson and is working on Recovery Maintenance.
--- NOTE | 2016-11-03 16:15 | NUR ---
PEER REVIEWS 1.25 HRS: Clt participated in peer reviews and took a risk to give open and honest feedback to those receiving a review. Client also had a peer review and some of what he heard was he worries about everyone else but himself, can ne easily influenced, glorifies the past, quick to give advice but does not take suggestions, is afraid, stuck in his old ways, is on the fence, holds a lot of resentments and shame, worries way too much about things that aren't important, is immature, and uses humor as a defense.
--- NOTE | 2016-11-03 20:34 | NUR ---
Tech note: client watched TV and movies. Walked to optional offiste AA meeting. SE:peer review
--- NOTE | 2016-11-04 04:54 | NUR ---
Bed note: Client was in bed with eyes closed and no distress at all bed checks.
--- NOTE | 2016-11-04 14:43 | NUR ---
CASE MAN: Krystal was told by his atty's office that he needs to have something notarized and they would be faxing it over here. They did not fax it, so a letter was faxed to Kristian Crump to inform them krystal has a bed waiting for him, if they will get the warrant lifted.
--- NOTE | 2016-11-04 14:45 | NUR ---
FINAL SESSION 1 HR: Clt stated he isn't really worrying about it, but is concerned, as the thing they said would be faxed was not sent, and that he needs it notarized before it gets returned. However, clt heard he needs a drivers license to get something notarized. We came to the decision I will ask that he be able to stay an extra day to work things out, and a letter ws sent to his atty to request the warrant be lifted. Clt did the survey and we completed his continued care plan and he was give a coin and possibly completed thru tx.
--- NOTE | 2016-11-04 16:44 | NUR ---
Tech Note: Client attended the A.A.Meeting at [address] [place] [address] and is working on Recovery Maintenance. Client also had appointment with counselor.
--- NOTE | 2016-11-04 22:37 | NUR ---
Tech note: Client walked around the park a few times for rec and walked to an offsite AA meeting. SE; getting his graduation coin.
--- NOTE | 2016-11-05 04:58 | NUR ---
Bed note: client was in bed with eyes closed and no distress at all bed checks.
--- NOTE | 2016-11-05 15:22 | NUR ---
TECH NOTE: Client participated in big book study, attended denominational, completed chores and watched tv/movies.
--- NOTE | 2016-11-05 23:06 | NUR ---
tech note: Client participated in Community [facility]. Client was late for the client meeting & walked in late with female peer . Client attended FOREIGN CORRESPONDENT meeting. Client watched tv & movies. SE: FOREIGN CORRESPONDENT meeting.
--- NOTE | 2016-11-06 04:39 | NUR ---
Bed note: client was in bed with eyes closed and no distress at all bed checks.
--- NOTE | 2016-11-06 14:55 | NUR ---
Tech note: Client is working on Recovery Maint & BB
--- NOTE | 2016-11-06 22:49 | NUR ---
Tech Note: Clt walked for recreation and attended onsite NA mtg. Watched tv and used phone. SE was all day
--- NOTE | 2016-11-07 04:39 | NUR ---
Bed Note: Clt lay motionless in bed with eyes closed showing no distress at all bed checks.
--- NOTE | 2016-11-07 15:32 | NUR ---
Tech Note: Client participated in light stretching for morning exercise and went on an outdoor walk in the afternoon. Client stated that he is working on reading the Big Book.
--- NOTE | 2016-11-07 15:46 | NUR ---
Education 1 Hour: Client watched the video, "How to Sabotage your Treatment."
--- NOTE | 2016-11-07 15:47 | NUR ---
1.5 hr res group/ratio 1:9/ Group heard a step one, a letter to addiction, and discussed the importants of keeping a balance of not doing to many nice things for others verses taking care of self. This client related and gave feedback.
--- NOTE | 2016-11-07 22:45 | NUR ---
Tech note: Client walked a mile for rec, did guided meditation and attended an onsite AA meeting. SE: 30 days
--- NOTE | 2016-11-08 04:19 | NUR ---
Education: 1 Hour. Client attended presentation by staff on "Step 1."
--- NOTE | 2016-11-08 05:09 | NUR ---
Bed note: Client was in bed with eyes closed and in no apparent distress at all bed checks.
--- NOTE | 2016-11-08 09:37 | NUR ---
Tech notes: Client is working on BB
--- NOTE | 2016-11-08 09:57 | NUR ---
FINAL SESSION .5 HRS: Clt had to be seen one last time, as he didn't get out of here the day before. Arrangements have been made to get him to [place] to complete papers so he can get his warrant lifted and court continued, so he can make it back to get into the [facility]. Calls were made to his atty, who stated the co atty won't budge, so he has to go to [place]. Clt was completed thru tx.
--- NOTE | 2016-11-08 10:15 | NUR ---
DISCHARGE NOTE Client left tx with a friend , all personal belongings were sent with. Discharge instructions gone over and copy given.
--- NOTE | 2016-12-17 16:59 | DS ---
ADMIT: 10/09/2016 RM/LOC: [facility] [place] MR#: [id number] [place] LLCT#: [id number] [address] [id number] CHAPIN EVANS [address] [place] [address] General Discharge Summary SEX: M AGE: 26 : 1990 ADMISSION DATE: 10/09/2016 DISCHARGE DATE: 11/08/2016 ADMITTING DIAGNOSIS: As per history and physical. FINAL DIAGNOSES: 1. Methamphetamine use disorder, severe. 2. Cannabis use disorder, severe. 3. Alcohol use disorder, severe. 4. Type 1 diabetes insulin dependent. 5. Tobacco use disorder. COMPLICATIONS: None. OPERATIONS: None. CLINICAL HISTORY: The patient is a 26-year-old, white male, admitted to the residential care program at the [facility] for treatment of his methamphetamine use disorder, cannabis use disorder, and alcohol use disorder. For details of his pattern of usage and problems associated with his ongoing substance abuse and chemical dependency, please see the clinical history portion of the dictated history and physical. Please also see dictated history and physical for pertinent findings on physical exam. LABORATORY AND X-RAY SUMMARY FROM THIS ADMISSION: None performed other than for his glucometer checks, which were done 4 times a day. The patient had q.i.d. blood sugar checks a.c. and at bedtime. These were monitored throughout his hospital stay and insulin dosage was adjusted accordingly. HOSPITAL COURSE: The patient was admitted to the residential care program at the [facility] for treatment of his methamphetamine use disorder, cannabis use disorder, and alcohol use disorder. He is admitted to the treatment program on 10/09/2016 and remained in treatment until 11/08/2016. While in treatment, his primary counselor was Mary Drake. While in treatment, he participated in individual therapy and group therapy. He was given the educational series on substance abuse and worked on many of these assignments during his stay at the treatment program. While in treatment, he was accepting of his substance abuse problem and worked well with the staff in both individual and group sessions. He was able to complete step 1 of AA during this level of care. During his stay at the treatment program, he has no significant medical issues. His blood sugars fluctuated a great deal based on his dietary intake, but we did have him work with the dietitian as well as a diabetic nurse educator and monitored his glucose 4 times a day. While in treatment, he was able to identify the negative consequences of his addiction and gained insight into the disease concept of addiction. He was able to recognize his powerlessness over drugs and alcohol. He worked on relapse prevention and was able to identify obstacles to his sobriety. 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 He was able to complete step 1 of AA during this level of care. He ultimately completed his residential treatment goals and was felt to be ready for the next level of care. It was recommended that as soon as his legal issues were resolved that he should then get into the [facility] and reside at a skilled nursing house for 6 to 9 months until dismissed with staff approval. It was recommended that he attend 3 to 5 AA or NA meetings per week and maintain regular contact with his sponsor preferably on a daily basis. He did have a spot being held for him at the [facility], and he was going to reside there as noted for 6 to 9 months and follow through on their aftercare program. CONDITION AT DISCHARGE: Stable and improved. PROGNOSIS: [place] to be good if he followed through on his extended skilled nursing house stay. DISCHARGE MEDICATIONS: Include: 1. Lantus insulin 40 units at bedtime. 2. NovoLog to be administered premeal and at bedtime via sliding scale. 3. Melatonin 9 mg at bedtime. 4. Multivitamin once daily. Nilay Patiño MD/ howard JOB #: [id number] CC: Nilay Patiño MD, Attending Physician NO FAMILY PHYSICIAN, Family Physician
== END 2016-11-08 10:17 | disposition home or self-care (01) | DRG 895 ==
LOC: ADTC 13:35
PROVIDERS: ADMIT Family Medicine
PROC: HZ43ZZZ Group Counseling for Substance Abuse Treatment, 12-Step (ICD-10-PCS; principal; 2016-10-09)
PROC: HZ34ZZZ Individual Counseling for Substance Abuse Treatment, Interpersonal (ICD-10-PCS; principal; 2016-10-09)
DX: F15.20 Other stimulant dependence, uncomplicated (principal); E10.9 Type 1 diabetes mellitus without complications; F10.20 Alcohol dependence, uncomplicated; F12.20 Cannabis dependence, uncomplicated; Z79.4 Long term (current) use of insulin; F17.210 Nicotine dependence, cigarettes, uncomplicated; Z65.3 Problems related to other legal circumstances; Z63.72 Alcoholism and drug addiction in family; Z72.89 Other problems related to lifestyle